=== PATIENT | male | born 1935 | race African-American/Black ===

== ENCOUNTER 2017-10-18 09:32 | Emergency (ER) | payer MEDICARE ==
[2017-10-18 10:39] LABS: Basophils % (Auto) 0.3 % (0.0-1.8); Eosinophils # (Auto) 0.1 K/mm3 (0.0-0.4); Eosinophils % (Auto) 0.8 % (0.0-4.3); Hematocrit 42.2 % (35.5-45.6); Hemoglobin 13.9 gm/dl (11.8-15.2); Lymphocytes # (Auto) 4.3 K/mm3 (1.2-5.4); Lymphocytes % (Auto) 33.9 % (13.4-35.0); Mean Corpuscular HGB Conc 33 % (32-34); Mean Corpuscular Hemoglobin 30 pg (28-32); Mean Corpuscular Volume 90 fl (84-94); Monocytes # (Auto) 0.9 K/mm3 (0.0-0.8); Monocytes % (Auto) 7.1 % (0.0-7.3); Platelet Count 199 K/mm3 (140-440); Red Blood Count 4.71 M/mm3 (3.65-5.03); Red Cell Distribution Width 13.9 % (13.2-15.2)
[2017-10-18 10:58] LABS: Alanine Aminotransferase 33 units/L (7-56); Albumin 4.2 g/dL (3.9-5); BUN/Creatinine Ratio 19; Blood Urea Nitrogen 17 mg/dL (9-20); Calcium 9.5 mg/dL (8.4-10.2); Hemolysis Index 6; Lipase 54 units/L (13-60)
[2017-10-18] MEDS ORDERED: ZOFRAN IV ONE (10:58)
[2017-10-18] MEDS ORDERED: SUBLIMAZE IV ONE (10:58)
[2017-10-18] MEDS ORDERED: NACL 0.9% 1000 ML 1,000 ML IV ONE (10:58)
--- NOTE | 2017-10-18 11:05 | Emergency Department Report ---
HPI - General Chief Complaint: Abdominal Pain Time Seen by Provider: 10/18/17 10:44 - HPI HPI: Room 23 The patient is an 82-year-old male presenting with a chief complaint of abdominal pain and diarrhea. The patient was in his usual state of health last night when he ate cheese and cookies at 21:30. The patient was awakened this morning at 04:00 with orders to have a bowel movement. Patient states she's had 4 episodes of diarrhea between 04:00 and 08:00. The patient states she took Imodium and then developed nausea and vomiting yellow emesis. Patient states she's had a twisting epigastric abdominal pain. Patient denies recent antibiotics. Patient denies chest pain. There are no sick contacts at home. The patient currently gets his pain score 4/10 Location: [See above] Duration: [See above] Quality: Twisting Severity: 4/10 Modifying factors: [see above] Context: [see above] Mode of transportation: [not driving] ED Past Medical Hx - Past Medical History Previous Medical History?: Yes Hx of Cancer: Yes (bladder) - Surgical History Hx Cholecystectomy: Yes Additional Surgical History: Bladder surgery 2 - Family History Family history: no significant - Social History Smoking Status: Never Smoker Substance Use Type: None - Medications Home Medications: Home Medications Medication Instructions Recorded Confirmed Last Taken Type Diphenoxylate HCl/Atropine 2 each PO QID PRN #20 tablet 10/18/17 Unknown Rx [Lomotil 2.5-0.025 mg Tablet] HYDROcodone/APAP 5-325 [Asotin 1 each PO Q6HR PRN #10 tablet 10/18/17 Unknown Rx 5/325] Promethazine [Phenergan TAB] 25 mg PO Q6HR PRN #20 tab 10/18/17 Unknown Rx Promethazine [Phenergan] 25 mg IA Q6HR PRN #5 supp.rect 10/18/17 Unknown Rx ED Review of Systems ROS: Stated complaint: NAUSEA/VOMITING Other details as noted in HPI Constitutional: denies: fever Respiratory: shortness of breath (secondary to pain) Cardiovascular: denies: chest pain Gastrointestinal: abdominal pain, nausea, vomiting, diarrhea Musculoskeletal: denies: back pain Physical Exam - Physical Exam Vital Signs: Vital Signs 10/18/17 10:02 Temperature 98 F Pulse Rate 69 Respiratory 13 Rate Blood Pressure 125/63 [Right] O2 Sat by Pulse 99 Oximetry Physical Exam: GENERAL: The patient is well-developed well-nourished male lying on stretcher not appearing to be in acute distress. [] HEENT: Normocephalic. Atraumatic. Extraocular motions are intact. NECK: Supple. Trachea midline CHEST/LUNGS: Clear to auscultation. There is no respiratory distress noted. HEART/CARDIOVASCULAR: Regular. There is no tachycardia. There is no gallop rub or murmur. ABDOMEN: Abdomen is soft, with discomfort to palpation in the midepigastric, left upper quadrant, right lower quadrant and suprapubic region. Patient has normal bowel sounds. There is no abdominal distention. SKIN: There is no diaphoresis. NEURO: The patient is awake, alert, and oriented. The patient is cooperative. The patient has normal speech MUSCULOSKELETAL: There is no evidence of acute injury. ED Course Vital Signs 10/18/17 10:02 Temperature 98 F Pulse Rate 69 Respiratory 13 Rate Blood Pressure 125/63 [Right] O2 Sat by Pulse 99 Oximetry ED Medical Decision Making - Lab Data Result diagrams: 10/18/17 09:42 10/18/17 09:42 Laboratory Tests 10/18/17 10/18/17 10/18/17 09:42 09:42 Unknown WBC 12.7 H RBC 4.71 Hgb 13.9 Hct 42.2 MCV 90 MCH 30 MCHC 33 RDW 13.9 Plt Count 199 Lymph % (Auto) 33.9 [place] % (Auto) 7.1 Eos % (Auto) 0.8 Baso % (Auto) 0.3 Lymph # 4.3 [place] # 0.9 H Eos # 0.1 Baso # 0.0 Seg Neutrophils % 57.9 Seg Neutrophils # 7.4 Sodium 145 Potassium 4.4 Chloride 102.8 Carbon Dioxide 26 Anion Gap 21 BUN 17 Creatinine 0.9 Estimated GFR > 60 BUN/Creatinine Ratio 19 Glucose 111 H Calcium 9.5 Total Bilirubin 1.00 AST 53 H ALT 33 Alkaline Phosphatase 67 Total Creatine Kinase 251 H CK-MB (CK-2) 3.2 CK-MB (CK-2) Rel Index 1.2 Troponin T < 0.010 Total Protein 7.5 Albumin 4.2 Albumin/Globulin Ratio 1.3 Lipase 54 - EKG Data -: EKG Interpreted by Ct EKG shows normal: sinus rhythm Rate: normal - EKG Data When compared to previous EKG there are: previous EKG unavailable Interpretation: nonspecific ST-T wave pilar - Radiology Data Radiology results: report reviewed (CT abdomen and pelvis), image reviewed (CT abdomen and pelvis) FINAL REPORT PROCEDURE: CT ABDOMEN PELVIS W CON TECHNIQUE: Computerized axial tomography of the abdomen and pelvis was performed after the IV injection of iodinated nonionic contrast. HISTORY: epigastric abd pain, diarrhea. h/o bladder CA COMPARISON: None FINDINGS: Visualized lower thorax: No significant abnormality. Liver: No focal lesion. Spleen: Normal size and attenuation. Gallbladder and biliary system: Cholecystectomy. Mild intrahepatic and extrahepatic biliary ductal dilatation. Pancreas: Normal. Adrenals: Normal. Kidneys: Left renal cortical cysts the largest of which is 2.9 x 3.3 centimeters. Left parapelvic cyst not excluded. Normal right kidney. GI tract: Limited in evaluation without oral contrast. Colonic diverticulosis worst of the sigmoid colon.. Lymph nodes and mesentery: Normal. Vasculature: Mild atherosclerosis. No abdominal aortic aneurysm. Bladder: Normal. Reproductive organs: Mildly enlarged prostate. Peritoneum: No free fluid. Musculoskeletal structures: Mild degenerative changes of the spine and hips. Other: None. IMPRESSION: No CT evident acute abdominal/pelvic pathology. Mild intra and extrahepatic biliary ductal dilatation likely due to patient age and post cholecystectomy state. Correlate with liver enzymes and follow-up as deemed relevant. Left renal cortical as well as suspected parapelvic cysts. Colonic diverticulosis. Enlarged prostate. Correlate with PSA. Mild degenerative changes of the spine and hips. Transcribed By: HERMELINDA Dictated By: CASSIA SAUL MD Electronically Authenticated By: CASSIA SAUL MD Signed Date/Time: 10/18/17916 DD/ 6 TD/TT: 10/18/17916 - Medical Decision Making CT findings discussed with patient and son. Enlarged prostate mentioned. Patient can follow-up with his urologist at [place] - Differential Diagnosis enteritis, colitis, gastroenteritis, partial small bowel obstruction, ACS Critical care attestation.: If time is entered above; I have spent that time in minutes in the direct care of this critically ill patient, excluding procedure time. ED Disposition Clinical Impression: Acute abdominal pain, Nausea vomiting and diarrhea Disposition: - TO HOME OR SELFCARE Is pt being admited?: No Does the pt Need Aspirin: No Condition: Stable Instructions: Acute Nausea and Vomiting (ED), Abdominal Pain (ED) Additional Instructions: Return to the emergency department immediately should you develop worsening symptoms, fever, inability to tolerate food or liquid or any other concerns. Prescriptions: Diphenoxylate HCl/Atropine [Lomotil 2.5-0.025 mg Tablet] 2 each PO QID PRN #20 tablet PRN Reason: Diarrhea HYDROcodone/APAP 5-325 [Asotin 5/325] 1 each PO Q6HR PRN #10 tablet PRN Reason: Pain Promethazine [Phenergan TAB] 25 mg PO Q6HR PRN #20 tab PRN Reason: Nausea Promethazine [Phenergan] 25 mg IA Q6HR PRN #5 supp.rect PRN Reason: Vomiting Referrals: PRIMARY CARE, [Primary Care Provider] - 3-5 Days Time of Disposition: 13:33
[2017-10-18] MEDS ORDERED: NACL ONE (11:23)
[2017-10-18 11:28] LABS: Creatine Kinase MB 3.2 ng/mL (0.0-4.0)
--- NOTE | 2017-10-18 13:21 | Cat Scan Report ---
FINAL REPORT PROCEDURE: CT ABDOMEN PELVIS W CON TECHNIQUE: Computerized axial tomography of the abdomen and pelvis was performed after the IV injection of iodinated nonionic contrast. HISTORY: epigastric abd pain, diarrhea. h/o bladder CA COMPARISON: None FINDINGS: Visualized lower thorax: No significant abnormality. Liver: No focal lesion. Spleen: Normal size and attenuation. Gallbladder and biliary system: Cholecystectomy. Mild intrahepatic and extrahepatic biliary ductal dilatation. Pancreas: Normal. Adrenals: Normal. Kidneys: Left renal cortical cysts the largest of which is 2.9 x 3.3 centimeters. Left parapelvic cyst not excluded. Normal right kidney. GI tract: Limited in evaluation without oral contrast. Colonic diverticulosis worst of the sigmoid colon.. Lymph nodes and mesentery: Normal. Vasculature: Mild atherosclerosis. No abdominal aortic aneurysm. Bladder: Normal. Reproductive organs: Mildly enlarged prostate. Peritoneum: No free fluid. Musculoskeletal structures: Mild degenerative changes of the spine and hips. Other: None. IMPRESSION: No CT evident acute abdominal/pelvic pathology. Mild intra and extrahepatic biliary ductal dilatation likely due to patient age and post cholecystectomy state. Correlate with liver enzymes and follow-up as deemed relevant. Left renal cortical as well as suspected parapelvic cysts. Colonic diverticulosis. Enlarged prostate. Correlate with PSA. Mild degenerative changes of the spine and hips.
[2017-10-18 13:54] VITALS: BP 127/66
[2017-10-18 14:29] LABS: Bilirubin,Urine NEG (Negative); Color,Urine Colorless (Yellow); Nitrite,Urine NEG (Negative); Protein,Urine <15 mg/dL mg/dL (Negative); Urobilinogen,Urine < 2.0 mg/dL (<2.0); WBC,Urine < 1.0 /HPF (0.0-6.0)
[2017-10-18 14:39] LABS: Blood,Urine SM (Negative)
== END 2017-10-18 13:59 | disposition home or self-care (01) ==
LOC: ED 09:32
DX: R10.84 Generalized abdominal pain (principal); R11.2 Nausea with vomiting, unspecified; R19.7 Diarrhea, unspecified; C67.9 Malignant neoplasm of bladder, unspecified; Z90.49 Acquired absence of other specified parts of digestive tract
CPT/HCPCS: 36415; 74177; 80053; 81001; 82550; 82553; 83690; 84484; 85025; 93005; 93010; 96361; 96374; 96375; 99284; J2405; J3010; J7030; Q9967